=== PATIENT | female | born 1960 | race Caucasian/White ===

== ENCOUNTER 2017-12-12 20:00 | Emergency (ER) | payer OTHER ==
[~2017-12-12] VITALS: Ht 149.9 cm; Wt 89.9 kg
[~2017-12-12 20:00] MED LIST: REGLAN
[2017-12-12 20:07] VITALS: BP 150/90
--- NOTE | 2017-12-12 20:10 | NUR ---
to bed # 2 ambulatory , report given to Diann Forbes
--- NOTE | 2017-12-12 20:18 | NUR ---
PT CAME IN WITH C/O PAIN TO THE EPIGASTRIC AND ABDOMINAL PAIN X 30 DAYS. PT STATES SHE IS CONSTIPATED AND HAS HAD SOME ACID REFLUX. BOWL SOUNDS ON ALL 4 Q AND ARE ACTIVE. NON TENDER TO TOUCH. FAMILY AT BEDSIDE. DENIES N/V/D; SKIN IS PINK/WARM/DRY; AAOX4 WITH EVEN AND STEADY GAIT; HR EVEN AND REGULAR; PT DENIES ANY FEVER, CP; PATIENT STATES PAIN OF 6/10 AT THIS TIME; VSS; PATIENT POSITIONED FOR COMFORT; HOB ELEVATED; BEDRAILS UP X2; BED DOWN. ER MD MADE AWARE OF PT STATUS.PT ALLERGY TO PENICILLIN
--- NOTE | 2017-12-12 20:20 | NUR ---
IN WITH PT
[2017-12-12] MEDS ORDERED: DICYCLOMINE HCL LIQUID 20 MG, ALUMINUM HYD/MAG/SIMETHICONE 30 ML, LIDOCAINE VISCOUS 2% ... PO ONE ×3 (20:35)
--- NOTE | 2017-12-12 20:55 | NUR ---
X RAY WITH PT
--- NOTE | 2017-12-12 21:05 | NUR ---
UTRASOUND WITH PT
[2017-12-12 21:15] LABS: ANION GAP 10.4 (8-16); CARBON DIOXIDE 27.7 mmol/L (21-32); CREATININE 0.9 mg/dL (0.6-1.3); POTASSIUM 3.1 mmol/L (3.5-5.1)
[2017-12-12 21:21] LABS: ALBUMIN 3.8 g/dL (3.4-5.0); TOTAL BILIRUBIN 1.1 mg/dL (0.0-1.0)
[2017-12-12] MEDS ORDERED: POTASSIUM CHLORIDE 10 MEQ TABER PO ONE (21:45)
[2017-12-12 22:50] VITALS: BP 150/90
== END 2017-12-12 22:50 | disposition home or self-care (01) ==
LOC: MED 20:00
DX: K59.00 Constipation, unspecified (principal); E87.6 Hypokalemia; Z88.0 Allergy status to penicillin
CPT/HCPCS: 36415; 74018; 76705; 80053; 81002; 81025; 83690; 99285; Q0092

== ENCOUNTER 2018-01-15 15:34 | Emergency (ER) | payer OTHER ==
[~2018-01-15] VITALS: Ht 149.9 cm; Wt 86.2 kg
[2018-01-15 15:42] VITALS: BP 151/91
--- NOTE | 2018-01-15 16:19 | NUR ---
PATIENT AMBULATED TO ER BED 10
--- NOTE | 2018-01-15 16:33 | NUR ---
PT IN BED, IN NAD. RESP EVEN AND UNLBAORED, ON RA@99%. REPORTS COMING TO ER FOR INTERMITTENT FRONTAL HEADCAHE AND POSTERIOR NECK PAIN X 4-5 DAYS. DENIES FEVERS/CHILLS. DENIES VISUAL CHANGES/PHOTOPHOBIA. DESCRIBES PAIN ACHE. AT BEDSIDE. SKIN W/D/I. WILL CONT TO MONITOR, AWAIITNG ER EVAL.
[2018-01-15] MEDS ORDERED: NACL 0.9% 1,000 ML IV ONE (17:15)
[2018-01-15] MEDS ORDERED: LORazepam 1 MG TAB PO ONE (17:15)
[2018-01-15] MEDS ORDERED: diphenhydrAMINE 50 MG/ML VIAL IVP ONE (17:15)
[2018-01-15] MEDS ORDERED: METOCLOPRAMIDE 10 MG/2 ML INJ VIAL IVP ONE (17:15)
[2018-01-15 17:56] LABS: BASOPHILS % (AUTO) 0.3 % (0.0-2.0); EOSINOPHILS # (AUTO) 0.1 K/uL (0-0.4); EOSINOPHILS % (AUTO) 1.6 % (0.0-4.0); HEMATOCRIT 43.1 % (36-48); HEMOGLOBIN 14.3 g/dL (12.0-16.0); LYMPHOCYTES # (AUTO) 1.4 K/uL (2.5-16.5); LYMPHOCYTES % (AUTO) 24.1 % (20.5-51.1); MEAN CORPUSCULAR HEMOGLOBIN 32 pg (27-31); MEAN CORPUSCULAR HGB CONC 33 g/dL (33-37); MEAN CORPUSCULAR VOLUME 94.8 fL (80-94); MONOCYTES # (AUTO) 0.5 K/uL (0.8-1.0); MONOCYTES % (AUTO) 9.3 % (1.7-9.3); NEUTROPHILS # (AUTO) 3.7 K/uL (1.8-7.7); NEUTROPHILS % (AUTO) 64.7 % (42.2-75.2); PLATELET COUNT (AUTO) 164 K/uL (140-450); RED BLOOD CELL COUNT(AUTO) 4.54 MIL/uL (4.20-5.40); RED CELL DISTRIBUTION WIDTH 13.9 % (11.6-13.7); WHITE BLOOD COUNT (AUTO) 5.7 K/uL (4.8-10.8)
[2018-01-15 18:04] LABS: APPEARANCE,URINE CLEAR (CLEAR); BILIRUBIN,URINE NEGATIVE (NEGATIVE); BLOOD, URINE NEGATIVE (NEGATIVE); COLOR,URINE YELLOW (YELLOW); LEUKOCYTE ESTERASE ,URINE NEGATIVE (NEGATIVE); NITRITE, URINE NEGATIVE (NEGATIVE); UGLUCOSE NEGATIVE (NEGATIVE)
[2018-01-15 18:24] LABS: ALBUMIN 4.2 g/dL (3.4-5.0); ANION GAP 12.5 (8-16); CARBON DIOXIDE 27.8 mmol/L (21-32); CREATININE 0.6 mg/dL (0.6-1.3); POTASSIUM 3.3 mmol/L (3.5-5.1); TOTAL BILIRUBIN 1.8 mg/dL (0.0-1.0)
[2018-01-15 19:55] VITALS: BP 129/86
== END 2018-01-15 19:55 | disposition home or self-care (01) ==
LOC: MED 15:34
DX: R51 Headache (principal); I10 Essential (primary) hypertension; Z88.0 Allergy status to penicillin
CPT/HCPCS: 36415; 70450; 80053; 81003; 85025; 99285; J1200; J2765; J7030

== ENCOUNTER 2018-05-10 14:11 | Emergency (ER) | payer OTHER ==
[~2018-05-10] VITALS: Ht 154.9 cm; Wt 92.1 kg
[2018-05-10 14:17] VITALS: BP 161/88
--- NOTE | 2018-05-10 14:27 | NUR ---
PT AMUBLATED TO ER BED 11
--- NOTE | 2018-05-10 14:35 | NUR ---
C/O BURNING PRURITUS MULTIPLE AREA OF BODY X 1 WK WORSE SO ON LEFT TRICEP AREA SMALLER OVER ABDOMEN AND BACK, NOT ISOLATED OVER ONE HALF ON BODY . DENIES N/V/D; SKIN IS PINK/WARM/DRY; AAOX4 WITH EVEN AND STEADY GAIT; LUNGS CLEAR BL; HR EVEN AND REGULAR; PT DENIES ANY FEVER, CP, SOB, OR COUGH AT THIS TIME; PATIENT STATES PAIN OF 8/10 AT THIS TIME; VSS; PATIENT POSITIONED FOR COMFORT; HOB ELEVATED; BEDRAILS UP X2; BED DOWN. ER MD MADE AWARE OF PT STATUS.
[2018-05-10] MEDS ORDERED: diphenhydrAMINE 50 MG/ML VIAL IM ONE (15:10)
[2018-05-10] MEDS ORDERED: hydrOXYzine HCL 25 MG TAB PO ONE (15:10)
[2018-05-10] MEDS ORDERED: DEXAMETHASONE 10 MG/ML VIAL IM ONE (15:10)
--- NOTE | 2018-05-10 15:10 | NUR ---
PT MOVED TO BED 9
--- NOTE | 2018-05-10 15:30 | NUR ---
PATIENT RESTING AT THIS TIME. NO SIGNS OF DISTRESS.
[2018-05-10] MEDS ORDERED: FLUCONAZOLE 100 MG TAB PO ONE (16:10)
[2018-05-10 16:54] VITALS: BP 148/88
--- NOTE | 2018-05-10 16:54 | NUR ---
Patient discharged with v/s stable. Written and verbal after care instructions given and explained. Patient alert, oriented and verbalized understanding of instructions. Ambulatory with steady gait. All questions addressed prior to discharge. ID band removed. Patient advised to follow up with PMD. Rx of PEPCID 40MG, PREDNISONE 20MG, ATARAX 25MG given. Patient educated on indication of medication including possible reaction and side effects. Opportunity to ask questions provided and answered.
== END 2018-05-10 16:54 | disposition home or self-care (01) ==
LOC: MED 14:11
DX: L51.9 Erythema multiforme, unspecified (principal); I10 Essential (primary) hypertension; Z88.0 Allergy status to penicillin
CPT/HCPCS: 96372; 99283; J1100; J1200

== ENCOUNTER 2018-09-03 19:26 | Emergency (ER) | payer OTHER ==
[~2018-09-03] VITALS: Ht 157.5 cm; Wt 94.9 kg
[2018-09-03 19:36] VITALS: BP 141/68
--- NOTE | 2018-09-03 19:40 | NUR ---
TO BED #07 AMBULATORY, REPORT GIVEN TO GALLO ORMAN
--- NOTE | 2018-09-03 20:04 | NUR ---
58 YO F BIB PRESENTS TO THE ED C/O NUMBNESS TO FACE, ARMS, LEGS SINCE SATURDAY. NO FACIAL DROOPING PRESENT. STRENGTH AND MOTOR FUNCTION IS SYMETRICAL AND IN TACT. SPEECH IS CLEAR. DENIES CHEST PAIN, SOB, NVD. SKIN IS PINK, DRY, INTACT. EYES PERRLA. PMH-- DENIES RX-- DENIES PT APPEARS CALM, COOPERATIVE, BEHAVIOR APPROPRIATE. BREATHING EVEN, UNLABORED. VSS. NO APPARENT DISTRESS AT THIS TIME. PT POSITIONED FOR COMFORT. HOB ELEVATED. SIDE RAIL UP X1. BED IN LOWEST POSITION.
[2018-09-03] MEDS ORDERED: LORazepam 1 MG TAB PO ONE (20:20)
[2018-09-03 20:54] LABS: ANION GAP 12.6 (8-16); CARBON DIOXIDE 29.9 mmol/L (21-32); CREATININE 0.8 mg/dL (0.6-1.3); POTASSIUM 3.5 mmol/L (3.5-5.1)
[2018-09-03 21:37] VITALS: BP 133/76
== END 2018-09-03 21:37 | disposition home or self-care (01) ==
LOC: MED 19:26
DX: R20.2 Paresthesia of skin (principal); F41.9 Anxiety disorder, unspecified; I10 Essential (primary) hypertension; Z88.0 Allergy status to penicillin; Z79.899 Other long term (current) drug therapy
CPT/HCPCS: 36415; 80048; 99283

== ENCOUNTER 2019-01-15 20:59 | Emergency (ER) | payer OTHER ==
[~2019-01-15] VITALS: Ht 154.9 cm; Wt 94.3 kg
[2019-01-15 21:14] VITALS: BP 141/86
--- NOTE | 2019-01-15 21:19 | NUR ---
58 Y/O FEMALE UTI SYMPTOMS X2 WEEKS PT WAS GIVEN ABX CIPRO AND HAS FINISHED MED BUT STILL HAS PAIN AND BURNING. PAIN IS A 9/10 NURNING SENSATION THAT RADIATES TO THE LOWER ABDOMEN. ER MD AWARE OF STATUS. SIDERAILS X2 PMH: HTN ALLERGIES: PCN
--- NOTE | 2019-01-15 21:19 | NUR ---
PT GAVE URINE SAMPLE, TO WAIT IN LOBBY.
--- NOTE | 2019-01-15 23:26 | NUR ---
PT AMBULATED TO ER BED 04
[2019-01-16] MEDS ORDERED: KETOROLAC 60 MG/2 ML VIAL IM ONE (00:55)
--- NOTE | 2019-01-16 01:49 | NUR ---
Patient discharged with v/s stable. Written and verbal after care instructions given and explained. Patient alert, oriented and verbalized understanding of instructions. Ambulatory with steady gait. All questions addressed prior to discharge. ID band removed. Patient advised to follow up with PMD. Rx of MOTRIN 800MG AND BACTRIM DS 800MG-160MG given. Patient educated on indication of medication including possible reaction and side effects. Opportunity to ask questions provided and answered.
[2019-01-16 01:50] VITALS: BP 131/77
== END 2019-01-16 01:49 | disposition home or self-care (01) ==
LOC: MED 20:59
DX: R10.30 Lower abdominal pain, unspecified (principal); R30.0 Dysuria; I10 Essential (primary) hypertension; Z98.890 Other specified postprocedural states; Z79.899 Other long term (current) drug therapy; Z88.0 Allergy status to penicillin
CPT/HCPCS: 81002; 81025; 96372; 99283; J1885

== ENCOUNTER 2020-10-07 12:19 | Emergency (ER) | payer OTHER ==
[~2020-10-07] VITALS: Ht 152.4 cm; Wt 81.6 kg
[2020-10-07 12:24] VITALS: BP 142/85
[2020-10-07] MEDS ORDERED: LIDOCAINE MPF 1% 5 ML ONE (12:25)
[2020-10-07] MEDS ORDERED: TRANEXAMIC ACID 1,000 MG/10 ML VIAL MC ONE (12:35)
[2020-10-07] MEDS ORDERED: TRANEXAMIC ACID 1,000 MG/10 ML VIAL ONE (12:35)
[2020-10-07 13:09] LABS: BASOPHILS % (AUTO) 0.3 % (0.0-2.0); EOSINOPHILS % (AUTO) 0.2 % (0.0-4.0); HEMATOCRIT 35.2 % (36-48); LYMPHOCYTES # (AUTO) 0.6 K/uL (2.5-16.5); LYMPHOCYTES % (AUTO) 11.6 % (20.5-51.1); MEAN CORPUSCULAR HEMOGLOBIN 33 pg (27-31); MEAN CORPUSCULAR HGB CONC 34 g/dL (33-37); MEAN CORPUSCULAR VOLUME 96.1 fL (80-94); MONOCYTES # (AUTO) 0.3 K/uL (0.8-1.0); MONOCYTES % (AUTO) 5.4 % (1.7-9.3); NEUTROPHILS # (AUTO) 4.1 K/uL (1.8-7.7); NEUTROPHILS % (AUTO) 82.5 % (42.2-75.2); PLATELET COUNT (AUTO) 164 K/uL (140-450); RED BLOOD CELL COUNT(AUTO) 3.67 MIL/uL (4.20-5.40); RED CELL DISTRIBUTION WIDTH 14.8 % (11.6-13.7)
[2020-10-07 13:23] LABS: PROTHROMBIN TIME 10.3 secs (10.8-13.4)
[2020-10-07 13:31] LABS: ANION GAP 14.8 (8-16); CARBON DIOXIDE 24.7 mmol/L (21-32); CREATININE 0.9 mg/dL (0.6-1.3); POTASSIUM 3.5 mmol/L (3.5-5.1); TOTAL BILIRUBIN 0.9 mg/dL (0.0-1.0)
[2020-10-07 14:04] VITALS: BP 142/85
== END 2020-10-07 13:45 | disposition home or self-care (01) ==
LOC: MED 12:19
DX: I87.319 Chronic venous hypertension (idiopathic) with ulcer of unspecified lower extremity (principal); L30.9 Dermatitis, unspecified; R74.01 Elevation of levels of liver transaminase levels; R73.9 Hyperglycemia, unspecified; Z88.0 Allergy status to penicillin
CPT/HCPCS: 12004; 36415; 80053; 85025; 85610; 85730; 99283; J2001; J3490

== ENCOUNTER 2022-11-25 11:14 | Observation (INO) | payer OTHER ==
[2022-11-25] VITALS (7 sets, daily range): BP systolic 135–158; BP diastolic 62–84; PULSE 75–111; RESP 20; TEMP 96.7–98.5; O2SAT 96–100
[~2022-11-25] VITALS: Ht 149.9 cm; Wt 90.7 kg
[2022-11-25] MEDS ORDERED: LIDOCAINE/EPI MPF 1%1:200000 30 ML VIAL INJ ONE (12:10)
[2022-11-25 12:46] LABS: BASOPHILS % (AUTO) 0.4 % (0.0-2.0); EOSINOPHILS # (AUTO) 0.1 K/uL (0-0.4); EOSINOPHILS % (AUTO) 1.2 % (0.0-4.0); LYMPHOCYTES # (AUTO) 0.9 K/uL (2.5-16.5); LYMPHOCYTES % (AUTO) 14.4 % (20.5-51.1); MEAN CORPUSCULAR HEMOGLOBIN 17 pg (27-31); MEAN CORPUSCULAR HGB CONC 28 g/dL (33-37); MEAN CORPUSCULAR VOLUME 61.5 fL (80-94); MONOCYTES # (AUTO) 0.6 K/uL (0.8-1.0); MONOCYTES % (AUTO) 10.3 % (1.7-9.3); NEUTROPHILS # (AUTO) 4.5 K/uL (1.8-7.7); NEUTROPHILS % (AUTO) 73.7 % (42.2-75.2); PLATELET COUNT (AUTO) 215 K/uL (140-450); RED BLOOD CELL COUNT(AUTO) 3.01 MIL/uL (4.20-5.40); RED CELL DISTRIBUTION WIDTH 22.7 % (11.6-13.7); WHITE BLOOD COUNT (AUTO) 6.1 K/uL (4.8-10.8)
[2022-11-25 12:59] LABS: HEMATOCRIT 18.5 % (36-48); HEMOGLOBIN 5.2 g/dL (12.0-16.0)
[2022-11-25 13:34] LABS: ALBUMIN 2.8 g/dL (3.4-5.0); CARBON DIOXIDE 29.6 mmol/L (21-32); CREATININE 0.9 mg/dL (0.6-1.3); POTASSIUM 3.6 mmol/L (3.5-5.1); TOTAL BILIRUBIN 0.8 mg/dL (0.0-1.0)
[2022-11-25 13:54] LABS: PROTHROMBIN TIME 9.9 secs (10.8-13.4)
[2022-11-25] MEDS ORDERED: MAG SULF 2000 MG/WATER PREMIX 50 ML IV PRN (14:05)
[2022-11-25] MEDS ORDERED: POTASSIUM CHLORIDE 10 MEQ TABER PO PRN (14:05)
[2022-11-25] MEDS ORDERED: KCL 20 MEQ IN 100 mL PREMIX 200 ML IV PRN (14:05)
[2022-11-25] MEDS ORDERED: HYDROcodone/APAP 5/325 MG 1 TAB TAB PO PRN (14:05)
[2022-11-25] MEDS ORDERED: ZOLPIDEM 5 MG TAB PO PRN (14:05)
[2022-11-25] MEDS ORDERED: ONDANSETRON 4 MG/2 ML VIAL IVP PRN (14:05)
[2022-11-25] MEDS ORDERED: MORPHINE SULFATE 4 MG/ML SYR IVP PRN (14:05)
[2022-11-25] MEDS ORDERED: ACETAMINOPHEN 325 MG TAB PO PRN (14:05)
[2022-11-25] MEDS ORDERED: LORazepam 1 MG TAB PO PRN (14:05)
--- NOTE | 2022-11-25 15:14 | NUR ---
RECEIVE ER NURSE REPORT THAT AMBULATORY PATIENT COME FROM HOME FOR BLEEDING VARICOSE VEIN OF R. FOOT, WHICH DIAGNOSIS WITH LEG PAIN W/ VARICOSE VEIN BLEEDING (HGB=5.2). PATIENT HAS HX OF HTN, VENOUS STASIS ULCER, ALLERGY TO PENICILLINS; FULL CODE. PATIENT ALERT X4, ON ROOM AIR, ON REGULAR DIET, ON TEL MONITOR. ONLY WOUND IS R. FOOT BLEEDING SITE. ADMISSION VIT WITHIN PATIENT'S BASELINE (T-P_R: 97.1-106-20, BP: 158/62, O2 SAT: 100%). BLOOD IS READY FOR CAFETERIA SUPERVISOR IN LAB. WILL TRANSFUSING SOON. Addendum: 11/25/22 at 1638 by Jessica Palacios RN SINCE PATIENT HAS WOUND ATE R. ANKLE/HEEL, NURSE CONTACT ADMISSION PCP, DR. WYLIE FOR POSSIBLE WOUND CONSULT. INFORM THAT "NO NEED FOR CONSULT. JUST NEED TO TRANSFUSE [BLOOD, WHICH NURSE IS DOING NOW], AND APPLY PRESSURE [AT WOUND SITE]." WILL CONTINUE TO MONITOR Addendum: 11/25/22 at 2386 by Jessica Palacios RN @1555 NURSE START TRANSFUSING FIRST UNIT (ABOUT 300ML) PACKED BLOOD (T-P-R: 97.4-106, 20, BP:138/66). AT TIME OF 1750, PATIENT HAS NO ADVERSE REACTION (T-P-R: 97.3-103-20, BP: 147/63). WILL CONTINUE TO MONITOR. Addendum: 11/25/22 at 1905 by Jessica Palacios RN 1838 BLOOD TRANSFUSING COMPLETE; PATIENT HAS NO ADVERSE REACTION (T-P-R: 97.1-98-20, BP: 142/61). [facility] CALLED FOR POSSIBLE CAFETERIA SUPERVISOR SECOND UNIT BLOOD BUT [facility] HAS MEETING, AND ASKING CALL BACK 30 MINUTES LATER. NURSE WILL ENDORSE PM SHIFT NURSE TO GIVE 2ND UNIT OF BLOOD AND HAVE CBC ONE HOUR AFTER COMPLETE TRANSFUSING
--- NOTE | 2022-11-25 22:18 | NUR ---
PER BLOOD BANK - COME BACK AFTER 15 MINS .
--- NOTE | 2022-11-25 22:32 | NUR ---
CALL BLD. BANK - PER LAB THEY WILL MAKE ME A CALL ONCE THE PERSON AUTHORIZE TO RELEASE THE BLD. IS IN THERE . - WILL FF UP
--- NOTE | 2022-11-25 23:08 | NUR ---
BP 135/ 75 , HR 75 , T 98.3F , RR 18 , O2 SAT 97% , DENIES PAIN , WILL HOOK THE 2ND U OF PRBC
--- NOTE | 2022-11-25 23:27 | NUR ---
2ND BAG OF PRBC PROPERLY CROSS MATCHED AND TYPED STARTED , EDUCATES PT ABOUT S/SX OF BT RXN EXPLAINATION THRU MOLDING SANDER , TELL PT LET ME KNOW IF SHE FEELS DOES NOT RIGHT , PT VERBALIZES UNDERSTANDING , CALL LIGHT WITHIN REACH .
--- NOTE | 2022-11-25 23:41 | NUR ---
RE VISIT THE PT , NO COMPLAIN MADE , NO S/SX OF BT RXN NOTED AT THIS TIME , WILL CVONT. TO MONITOR , CALL LIGHT WITHIN REACH
[2022-11-26] VITALS: PULSE 92
[2022-11-26 00:03] VITALS: BP 133/60; PULSE 86; RESP 18; TEMP 98.4; O2SAT 96
--- NOTE | 2022-11-26 01:00 | NUR ---
no bt rxn noted , no complain made
--- NOTE | 2022-11-26 02:00 | NUR ---
no bt rxn noted , no complain made , will cont. to monitor
--- NOTE | 2022-11-26 03:00 | NUR ---
BT COMPLETED , NO BT RXN NOTED AT THIS TIME , WILL CONT. TO MONITOR , CALL LIGHT WITHIN REACH
[2022-11-26 03:30] VITALS: BP 130/85; PULSE 84; RESP 18; TEMP 98.5; O2SAT 96
[2022-11-26 04:00] VITALS: PULSE 90
--- NOTE | 2022-11-26 04:00 | NUR ---
ROUNDS , NO COMPLAIN MADE , WILL CONT. TO MONITOR , CALL LIGHT WITHIN REACH .
[2022-11-26 05:36] LABS: BASOPHILS % (AUTO) 0.8 % (0.0-2.0); CARBON DIOXIDE 31.1 mmol/L (21-32); CREATININE 0.7 mg/dL (0.6-1.3); EOSINOPHILS # (AUTO) 0.1 K/uL (0-0.4); HEMATOCRIT 24.5 % (36-48); HEMOGLOBIN 7.2 g/dL (12.0-16.0); LYMPHOCYTES # (AUTO) 1.2 K/uL (2.5-16.5); LYMPHOCYTES % (AUTO) 21.3 % (20.5-51.1); MEAN CORPUSCULAR HEMOGLOBIN 19 pg (27-31); MEAN CORPUSCULAR HGB CONC 29 g/dL (33-37); MEAN CORPUSCULAR VOLUME 66.2 fL (80-94); MONOCYTES # (AUTO) 0.6 K/uL (0.8-1.0); MONOCYTES % (AUTO) 10.8 % (1.7-9.3); NEUTROPHILS # (AUTO) 3.6 K/uL (1.8-7.7); NEUTROPHILS % (AUTO) 66.1 % (42.2-75.2); PLATELET COUNT (AUTO) 222 K/uL (140-450); POTASSIUM 4.1 mmol/L (3.5-5.1); RED BLOOD CELL COUNT(AUTO) 3.71 MIL/uL (4.20-5.40); WHITE BLOOD COUNT (AUTO) 5.5 K/uL (4.8-10.8)
--- NOTE | 2022-11-26 07:01 | NUR ---
ENDORSED PT FOR CONT. OF CARE .
[2022-11-26 08:00] VITALS: BP 140/77; PULSE 101; PULSE 85; RESP 18; TEMP 97.3; O2SAT 99
--- NOTE | 2022-11-26 08:56 | NUR ---
PATIENT HAS BEEN SCREENED AND CATEGORIZED LOW NUTRITION RISK. PATIENT WILL BE SEEN WITHIN 7 DAYS OF ADMISSION. 12/02/[address]
[2022-11-26] MEDS ORDERED: FERR30CA PO (10:36)
[2022-11-26 10:41] VITALS: BP 140/77; PULSE 85; RESP 18; TEMP 97.3
--- NOTE | 2022-11-26 11:33 | NUR ---
CALLED DR JN TAN'S OFFICE LOCATED AT [address] [place] [id number]. SPOKE WITH CHEY WHO WAS ABLE TO HELP ME SCHEDULE A FOLLOW UP APPOINTMENT FOR 11/28/2022 AT 1140. WENT TO BEDSIDE TO INFORM PATIENT OF THE ABOVE INFORMATION WELL GIVE APPOINTMENT SLIP.
--- NOTE | 2022-11-26 13:20 | NUR ---
DISCHARGE PATIENT HOME WITH [facility] #[id number] MINE EXPERT'S HELP. DISCHARGE INSTRUCTION GIVE WHICH INCLUDE WOUND CARE INSTRUCTION AND WHERE TO MEDICAL ADVISOR MEDICATION WHILE SPOUSE PRESENT; DISCHARGE CONSENT SIGN, IV ACCESS & WRIST BAND REMOVE PRIOR WHEEL PATIENT OUT.
== END 2022-11-26 13:20 | disposition home or self-care (01) ==
LOC: MED 11:14 → MTU 14:06
PROVIDERS: ADMIT Internal Medicine; ATTEND Internal Medicine
DX: D62 Acute posthemorrhagic anemia (principal); N93.9 Abnormal uterine and vaginal bleeding, unspecified; I83.019 Varicose veins of right lower extremity with ulcer of unspecified site; L97.919 Non-pressure chronic ulcer of unspecified part of right lower leg with unspecified severity; E43 Unspecified severe protein-calorie malnutrition; I10 Essential (primary) hypertension; Z79.899 Other long term (current) drug therapy; Z23 Encounter for immunization
CPT/HCPCS: 36415; 36430; 80048; 80053; 83735; 85025; 85610; 85730; 86886; 86900; 86901; 86920; 87081; 90471; 90715; 99291; G0378; P9016; J2001